=== PATIENT | female | born 1980 | race Caucasian/White ===

== ENCOUNTER 2016-12-02 11:11 | Emergency (ER) | payer MEDICAID, OTHER ==
[2016-12-02 11:20] VITALS: BMI 23.8
[2016-12-02 11:26] VITALS: BP 115/83; PULSE 86; RESP 18; TEMP 98.6; O2SAT 100
[2016-12-02] MEDS ORDERED: Sodium Chloride 0.9% 1,000 ML IV STA (11:45)
[2016-12-02 12:14] LABS: BASO # 0.01 K/mm3 (0.0-2.0); BASO % 0.1 % (0.0-3.0); EOS # 0.1 (0.0-0.7); EOS % 0.5 % (1.5-5.0); GRAN # 7.18 (1.4-6.5); GRAN % 70.5 % (50.0-68.0); HEMATOCRIT 37.8 % (36.0-48.0); LYMPH # 2.4 (1.2-3.4); LYMPH % 23.6 % (22.0-35.0); MEAN CELL VOLUME 91.1 fl (80.0-105.0); MEAN CORPUSCULAR HEMOGLOBIN 30.8 pg (25.0-35.0); MEAN CORPUSCULAR HGB CONC 33.9 g/dl (31.0-37.0); MEAN PLATELET VOLUME 10.2 fl (7.0-11.0); MONO # 0.5 (0.1-0.6); MONO % 5.3 % (1.0-6.0); RED CELL DISTRIBUTION WIDTH 13.4 % (11.5-14.5); WHITE BLOOD COUNT 10.2 10^3/ul (4.5-11.0)
--- NOTE | 2016-12-02 12:21 | ED PDOC ---
Arrival/HPI - General Chief Complaint: Female Genitourinary Time Seen by Provider: 12/02/16 11:44 Historian: Patient - History of Present Illness Narrative History of Present Illness (Text): 12/02/16 12:17 36 yo F w/ pmh of anemia, reports 3 day history of increasing vaginal bleeding, with mild lower abdominal pain and dizziness today. States that she had a D&C 3 days ago due to heavy menses because of fibroids, and to do a biopsy, was told to expect the vaginal bleeding to resolve yesterday, however it continued and was heavier last night, using 2-3 pads/day. Otherwise: (-) N/V, (-) fever, (-) urinary symptoms, (-) , (-) back pain. Has (-) other complaints. PMD Jair Past Medical History - Provider Review Nursing Documentation Reviewed: Yes - Infectious Disease Hx of Infectious Diseases: None - Tetanus Immunization Tetanus Immunization: Unknown - Cardiac Hx Cardiac Disorders: No - Pulmonary Hx Respiratory Disorders: No - Neurological Hx Neurological Disorder: No - HEENT Hx HEENT Disorder: No - Renal Hx Renal Disorder: Yes Hx Kidney Stones: Yes - Endocrine/Metabolic Hx Endocrine Disorders: No - Hematological/Oncological Hx Blood Disorders: Yes Hx Anemia: Yes Hx Blood Transfusions: No - Integumentary Hx Dermatological Disorder: No - Musculoskeletal/Rheumatological Hx Musculoskeletal Disorders: No - Gastrointestinal Hx Gastrointestinal Disorders: No - Genitourinary/Gynecological Hx Genitourinary Disorders: Yes Other/Comment: fibroids. D&C - Psychiatric Hx Psychophysiologic Disorder: No Hx Depression: No Hx Emotional Abuse: No Hx Physical Abuse: No Hx Substance Use: No - Surgical History Hx Dilation and Curettage: Yes Other/Comment: dental surgery. Tummy tuck - Anesthesia Hx Anesthesia: Yes Hx Anesthesia Reactions: No - Suicidal Assessment Feels Threatened In Home Enviroment: No Family/Social History - Physician Review Nursing Documentation Reviewed: Yes Family/Social History: Other (high cholesterol) Smoking Status: Never Smoked Hx Alcohol Use: No Hx Substance Use: No Hx Substance Use Treatment: No Allergies/Home Meds Allergies/Adverse Reactions: Allergies No Known Allergies Allergy (Verified 12/02/16 11:20) Home Medications: Home Meds Medication Instructions Recorded Confirmed No Known Home Med 12/02/16 12/02/16 Review of Systems - Review of Systems Constitutional: Normal. absent: Fatigue, Weight Change, Fevers Respiratory: Normal. absent: SOB, Cough, Sputum Cardiovascular: Normal. absent: Chest Pain, Palpitations, Edema Gastrointestinal: Normal, Abdominal Pain. absent: Constipation, Nausea, Vomiting Genitourinary Female: Normal, Vaginal Bleeding. absent: Dysuria, Frequency, Hematuria Musculoskeletal: Normal. absent: Arthralgias, Back Pain, Neck Pain Skin: Normal. absent: Rash, Pruritis, Skin Lesions Physical Exam - Physical Exam Narrative Physical Exam (Text): 12/02/16 12:21 GENERAL APPEARANCE: Patient is awake, alert, oriented x 3, in no acute distress. SKIN: Warm, dry; (-) cyanosis. EYES: (-) conjunctival pallor. ENMT: Mucous membranes moist. NECK: (-) tenderness, (-) stiffness, (-) lymphadenopathy. CHEST AND RESPIRATORY: (-) rales, (-) rhonchi, (-) wheezes; breath sounds equal bilaterally. HEART AND CARDIOVASCULAR: (-) irregularity; (-) murmur, (-) gallop. ABDOMEN AND GI: Soft; (-) tenderness. PELVIC: External genitalia WNL. (+) moderate amount of blood in the vaginal canal, closed cervical os, (-) tissue. No significant pain on cervical motion. Uterus firm, mildly enlarged. No adnexal masses or tenderness. A female, EMT , wine blender was present with me during the entire examination. EXTREMITIES: (-) deformity. NEURO AND PSYCH: Mental status as above; (-) focal findings. Vital Signs Temp Pulse Resp BP Pulse Ox 12/02/16 11:25 98.6 F 86 18 115/83 100 Medical Decision Making ED Course and Treatment: 12/02/16 12:22 36 yo F w/ pmh of anemia, reports 3 day history of increasing vaginal bleeding, with mild lower abdominal pain and dizziness, is s/p D&C 3 days ago due to heavy menses because of fibroids, and to do a biopsy. Plan: -- Labs -- IV fluids -- Urine hcg -- Reassess and disposition -- TV US 12/02/16 14:30 Labs reviewed hgb is normal at 12.8. US still pending. On re-evaluation, patient reports no other complaints, reports no increase in vaginal bleeding. On exam, patient is laying in bed comfortably in no acute distress. Abdomen remains soft with no tenderness, no guarding, no CVA tenderness. US results reviewed : +Thickened endometrium up possibly due to residual flat and hemorrhagic debris. No definitive evidence of increased endometrial vascularity. Call placed to patient's automotive electrical helper Dr Armenta. Spoke to Dr. Armenta, case discussed in great detail, he request outpt f/u tomorrow in his [place] office tomorrow. Plan for further care d/w the patient and she agrees and feels comfortable with this plan. Lab and US results d/w the patient. Patient advised to follow up with her automotive electrical helper tomorrow without fail. Return to the emergency room at any time for any new or worsening symptoms. Patient states she fully agrees with and understands discharge instructions. States that she agrees with the plan and disposition. Verbalized and repeated discharge instructions and plan. I have given the patient opportunity to ask any additional questions. - Lab Interpretations Lab Results: 12/02/16 12:00 12/02/16 12:00 Lab Results 12/02/16 12:00: Sodium 140, Potassium 4.1, Chloride 104, Carbon Dioxide 27, Anion Gap 13, BUN 10, Creatinine 0.7, Est GFR ( Amer) > 60, Est GFR (Non- Af Amer) > 60, Random Glucose 98, Calcium 9.6, Total Bilirubin 1.1, AST 20, ALT 36, Alkaline Phosphatase 70, Total Protein 7.6, Albumin 4.4, Globulin 3.2, Albumin/Globulin Ratio 1.4 12/02/16 12:00: PT 10.8, INR 1.00, APTT 27.3 12/02/16 12:00: WBC 10.2, RBC 4.15, Hgb 12.8, Hct 37.8, MCV 91.1, MCH 30.8, MCHC 33.9, RDW 13.4, Plt Count 266, MPV 10.2, Gran % 70.5 H, Lymph % (Auto) 23.6 , [place] % (Auto) 5.3, Eos % (Auto) 0.5 L, Baso % (Auto) 0.1, Gran # 7.18 H, Lymph # 2.4, [place] # 0.5, Eos # 0.1, Baso # 0.01 I have reviewed the lab results: Yes Interpretation: All labs normal - RAD Interpretation Narrative RAD Interpretations (Text): 12/02/16 14:32 US pelvis : FINDINGS: UTERUS: Measures approximately 7.3 x 3.6 x 4.5 cm. Normal in size and appearance. No fibroid or other mass lesion seen. ENDOMETRIUM: Endometrium is thickened measuring approximate 1.3 mm though this could be due to clot and debris in this patient who is actively bleeding during this procedure. . No definitive increased endometrial vascularity. CERVIX: The cervix measures approximately 3.9 cm with suspected small nabothian cyst measuring approximately 7 mm in greatest dimension. . RIGHT OVARY: Measures approximately 3.1 x 2.7 x 3.0 cm. Prominent Doppler complex appearing cyst measuring 2.4 x 1.8 x 1.9 cm. Cyst exhibits internal low-level echoes. . No solid cm. No solid mass. Normal flow. LEFT OVARY: Measures approximately 2.4 x 2.1 x 2.8 cm with small cyst measuring approximately 1.1 mm in greatest dimension. No solid mass. Normal flow. FREE FLUID: No significant free fluid noted. OTHER FINDINGS: None. IMPRESSION: Thickened endometrium up possibly due to residual flat and hemorrhagic debris. No definitive evidence of increased endometrial vascularity. Cysts complex appearing right ovarian cyst which exhibits internal low-level echoes. Rule out hemorrhagic cyst. Small cervical nabothian cyst. Repeat sonography during the next menstrual cycle shortly following cessation of menses recommended to assess for resolution of wall of the above-mentioned findings Radiology Orders: 12/02/16 12:16 TRANSVAGINAL [US] Stat - Medication Orders Current Medication Orders: Discontinued Medications Sodium Chloride (Sodium Chloride 0.9%) 1,000 mls @ 1,000 mls/hr IV .Q1H STA Stop: 12/02/16 12:44 Last Admin: 12/02/16 12:10 Dose: 1,000 mls/hr eMAR Start Stop Document 12/02/16 12:10 EWO (Rec: 12/02/16 12:10 JAZZY [id number]) Intravenous Solution Start Date 12/02/16 Start Time 12:10 End Date 12/02/16 End time 13:10 Total Infusion Time 60 - PA / RAILS DEVELOPER / Resident Statement / has reviewed & agrees with the documentation as recorded. Disposition/Present on Arrival - Present on Arrival Any Indicators Present on Arrival: No History of DVT/PE: No History of Uncontrolled Diabetes: No Urinary Catheter: No History of Decub. Ulcer: No History Surgical Site Infection Following: None - Disposition Have Diagnosis and Disposition been Completed?: Yes Diagnosis: Vaginal bleeding Disposition: HOME/ ROUTINE Disposition Time: 14:30 Patient Plan: Discharge Condition: STABLE Discharge Instructions (ExitCare): Dysfunctional Uterine Bleeding (ED) Print Language: BENINESE Additional Instructions: Thank you for letting us take care of you today. You were treated for vaginal bleeding. The emergency medical care you received today was directed at your acute symptoms. Return to the Emergency Department if your symptoms worsen, do not improve, or if you have any other problems. Please see your automotive electrical helper doctor tomorrow for re-evaluation and follow up. Bring any paperwork you were given at discharge with you along with any medications you are taking to your follow up visit. Our treatment cannot replace ongoing medical care by a primary care provider (PCP) outside of the emergency department. Thank you for allowing the [facility] team to be part of your care today. Forms: [employer] (Romanian)
[2016-12-02 12:23] LABS: PARTIAL THROMBOPLASTIN TIME 27.3 Seconds (23.7-30.8)
[2016-12-02 12:24] LABS: ALB/GLOB RATIO 1.4 (1.1-1.8); ALKALINE PHOSPHATASE 70 U/L (38-126); ALT/SGPT 36 U/L (7-56); AST/SGOT 20 U/L (14-36); BILIRUBIN,TOTAL 1.1 mg/dL (0.2-1.3); BLOOD UREA NITROGEN 10 mg/dL (7-21); CALCIUM 9.6 mg/dL (8.4-10.5); CARBON DIOXIDE 27 mmol/L (21-33); CHLORIDE 104 mmol/L (98-107); GFR AFRICAN-AMERICAN > 60; GLUCOSE,RANDOM 98 mg/dL (70-110); POTASSIUM 4.1 mmol/L (3.6-5.0); SODIUM 140 mmol/L (132-148); TOTAL PROTEIN 7.6 g/dL (5.8-8.3)
--- NOTE | 2016-12-02 14:24 | US ---
HISTORY: vag bleed, s/p D C COMPARISON: None available. TECHNIQUE: Transabdominal/transvaginal sonographic evaluation of the pelvis performed. FINDINGS: UTERUS: Measures approximately 7.3 x 3.6 x 4.5 cm. Normal in size and appearance. No fibroid or other mass lesion seen. ENDOMETRIUM: Endometrium is thickened measuring approximate 1.3 mm though this could be due to clot and debris in this patient who is actively bleeding during this procedure. . No definitive increased endometrial vascularity. CERVIX: The cervix measures approximately 3.9 cm with suspected small nabothian cyst measuring approximately 7 mm in greatest dimension. . RIGHT OVARY: Measures approximately 3.1 x 2.7 x 3.0 cm. Prominent Doppler complex appearing cyst measuring 2.4 x 1.8 x 1.9 cm. Cyst exhibits internal low-level echoes. . No solid cm. No solid mass. Normal flow. LEFT OVARY: Measures approximately 2.4 x 2.1 x 2.8 cm with small cyst measuring approximately 1.1 mm in greatest dimension. No solid mass. Normal flow. FREE FLUID: No significant free fluid noted. OTHER FINDINGS: None. IMPRESSION: Thickened endometrium up possibly due to residual flat and hemorrhagic debris. No definitive evidence of increased endometrial vascularity. Cysts complex appearing right ovarian cyst which exhibits internal low-level echoes. Rule out hemorrhagic cyst. Small cervical nabothian cyst. Repeat sonography during the next menstrual cycle shortly following cessation of menses recommended to assess for resolution of wall of the above-mentioned findings
== END 2016-12-02 15:09 | disposition home or self-care (01) ==
LOC: ED 11:11
DX: N93.9 Abnormal uterine and vaginal bleeding, unspecified (principal)
CPT/HCPCS: 76830; 80053; 85025; 85610; 85730; 96360; 99283; J7040